=== PATIENT | male | born 1960 | race Hispanic/Latino ===

== ENCOUNTER 2019-01-23 22:23 | Inpatient (IN) | payer MEDICAID ==
[2019-01-24 02:45] LABS: Basophils % (Auto) 0.4 % (0.0-1.8); Eosinophils # (Auto) 0.1 K/mm3 (0.0-0.4); Eosinophils % (Auto) 0.9 % (0.0-4.3); Hemoglobin 15.5 gm/dl (11.8-15.2); Lymphocytes # (Auto) 1.3 K/mm3 (1.2-5.4); Lymphocytes % (Auto) 13.6 % (13.4-35.0); Mean Corpuscular HGB Conc 35 % (32-34); Mean Corpuscular Volume 91 fl (84-94); Monocytes # (Auto) 1.1 K/mm3 (0.0-0.8); Monocytes % (Auto) 11.4 % (0.0-7.3); Platelet Count 211 K/mm3 (140-440); Red Blood Count 4.85 M/mm3 (3.65-5.03); Red Cell Distribution Width 13.6 % (13.2-15.2)
[2019-01-24 03:01] LABS: Alanine Aminotransferase 16 units/L (7-56); BUN/Creatinine Ratio 25; Blood Urea Nitrogen 15 mg/dL (9-20); Calcium 9.4 mg/dL (8.4-10.2); Hemolysis Index 10
[2019-01-24] MEDS ORDERED: ALUM-MAG HYDROXIDE-SIMETHICONE 200-200-20MG/5ML ORAL LIQD 30 ML PO ONE (04:14)
[2019-01-24] MEDS ORDERED: SODIUM CHLORIDE 0.9% 1000 ML 1,000 ML IV ONE (04:14)
[2019-01-24] MEDS ORDERED: LIDOCAINE VISCOUS 2% 15 ML ORAL LIQD PO ONE (04:14)
[2019-01-24] MEDS ORDERED: ONDANSETRON 4 MG/2 ML INJ IV ONE (04:14)
[2019-01-24] MEDS ORDERED: FAMOTIDINE 20 MG/2 ML INJ IV ONE ×2 (04:15→06:31)
[2019-01-24 04:18] LABS: Bilirubin,Urine NEG (Negative); Blood,Urine NEG (Negative); Color,Urine Yellow (Yellow); Protein,Urine <15 mg/dL mg/dL (Negative)
--- NOTE | 2019-01-24 04:59 | XRay Report ---
CHEST 2 VIEWS INDICATION / CLINICAL INFORMATION: cough. COMPARISON: None available. FINDINGS: SUPPORT DEVICES: None. HEART / MEDIASTINUM: No significant abnormality. LUNGS / PLEURA: There is consolidation in the lateral and posterior aspects of right upper lobe consi stent with pneumonia. Lungs are clear. No associated effusion. No adenopathy is seen. No pneumothorax . ADDITIONAL FINDINGS: No significant additional findings. IMPRESSION: 1. Right upper lobe pneumonia Signer Name: Filiberto Oliva MD Signed: 01/24/2019 4:55 AM Workstation Name: [id number]
[2019-01-24] MEDS ORDERED: methylPREDNISolone Sod Succinate 125 MG/2 ML INJ IV ONE (05:21)
[2019-01-24] MEDS ORDERED: IPRATROPIUM/ALBUTEROL SULFATE 3 ML AMPUL.NEB IH ONE (05:21)
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
[2019-01-24] MEDS ORDERED: ACETAMINOPHEN 325 MG TAB PO PRN (06:08)
[2019-01-24] MEDS ORDERED: MAGNESIUM HYDROXIDE (MOM) ORAL LIQD UDC PO PRN (06:08)
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
--- NOTE | 2019-01-24 10:29 | Event Note ---
Date: 01/24/19 This is a follow-up from an admission earlier this morning. Patient seen and examined. We will continue the plan as outlined in H&P. Time spent = 25 minutes with greater than 50% spent on coordination of care and counseling.
[2019-01-24] MEDS: SODIUM CHLORIDE 0.9% 1000 ML 1,000 ML IV SCH ×2 (12:25→21:37)
[2019-01-24] MEDS: ONDANSETRON 4 MG/2 ML INJ IV PRN ×2 (14:55→22:09)
[2019-01-24] MEDS: HEPARIN 5,000 UNIT/1 ML VIAL SUB-Q SCH ×2 (15:25→21:33)
[2019-01-25] MEDS: HEPARIN 5,000 UNIT/1 ML VIAL SUB-Q SCH ×3 (05:04→22:15)
[2019-01-25] MEDS: SODIUM CHLORIDE 0.9% 1000 ML 1,000 ML IV SCH ×2 (05:12→13:06)
[2019-01-25] MEDS: ONDANSETRON 4 MG/2 ML INJ IV PRN ×2 (05:12→17:16)
[2019-01-25 12:32] LABS: Basophils % (Auto) 0.9 % (0.0-1.8); Eosinophils # (Auto) 0.1 K/mm3 (0.0-0.4); Eosinophils % (Auto) 1.3 % (0.0-4.3); Hematocrit 37.9 % (35.5-45.6); Lymphocytes # (Auto) 1.2 K/mm3 (1.2-5.4); Lymphocytes % (Auto) 23.4 % (13.4-35.0); Mean Corpuscular HGB Conc 34 % (32-34); Mean Corpuscular Volume 91 fl (84-94); Monocytes # (Auto) 0.5 K/mm3 (0.0-0.8); Monocytes % (Auto) 10.1 % (0.0-7.3); Platelet Count 182 K/mm3 (140-440); Red Blood Count 4.17 M/mm3 (3.65-5.03); Red Cell Distribution Width 13.6 % (13.2-15.2)
[2019-01-25 12:44] LABS: INR 1.09 (0.87-1.13)
[2019-01-25 12:45] LABS: Partial Thromboplastin Time 29.2 Sec. (24.2-36.6)
[2019-01-25 12:57] LABS: BUN/Creatinine Ratio 28; Blood Urea Nitrogen 11 mg/dL (9-20); Calcium 7.7 mg/dL (8.4-10.2); Hemolysis Index 2
[2019-01-25] MEDS: amLODIPine 10 MG TAB PO SCH (13:01)
--- NOTE | 2019-01-25 15:29 | Progress Note ---
Assessment and Plan (1) Community acquired pneumonia of right upper lobe of lung Current Visit: Yes Status: Acute Plan to address problem: Patient placed on empiric IV antibiotics. He has been placed on IV Levaquin. Will await the culture results. (2) HIV positive Current Visit: Yes Status: Acute Plan to address problem: We'll continue patient's routine medications. CD4 count of 638 Viral load undetectable. (3) DVT prophylaxis Current Visit: Yes Status: Acute Plan to address problem: Patient placed on subcutaneous heparin (4) Full code status Current Visit: Yes Status: Acute Subjective Date of service: 01/25/19 Principal diagnosis: pneumonia Interval history: 58 year old white male with known history of HIV positive with CD4 count of 638 and undetectable viral load presenting to the emergency room today complaining of shortness of breath or cough has been ongoing for about 1 week. He has also had some fever at home. Cough has been productive for some yellowish to brownish sputum. He denies any chest pain. Patient indicates that he has been compliant with his medications and follows up with his physicians. Workup in the emergency room today shows right upper lobe pneumonia. He has been started on empiric IV antibiotics Objective - Constitutional Vitals: Vital Signs - 12hr 01/25/19 01/25/19 01/25/19 05:21 10:00 12:26 Temperature 97.8 F 98.0 F Pulse Rate 49 L 50 L Respiratory 18 20 Rate Blood Pressure 122/55 140/78 O2 Sat by Pulse 98 98 97 Oximetry General appearance: Present: no acute distress, well-nourished - EENT Eyes: PERRL, EOM intact ENT: hearing intact, clear oral mucosa Ears: bilateral: normal - Neck Neck: supple, normal ROM - Respiratory Respiratory effort: normal Respiratory: bilateral: CTA, rhonchi - Breasts Breasts: normal - Cardiovascular Heart rate: 78 Rhythm: regular Heart Sounds: Present: S1 & S2. Absent: gallop, rub Extremities: pulses intact, No edema, normal color, Full ROM - Gastrointestinal General gastrointestinal: Present: soft, non-tender, non-distended, normal bowel sounds - Genitourinary Male genitourinary: normal - Integumentary Integumentary: clear, warm, dry - Musculoskeletal Musculoskeletal: 1, strength equal bilaterally - Neurologic Neurologic: moves all extremities - Psychiatric Psychiatric: memory intact, appropriate mood/affect, intact judgment & insight - Allied health notes Allied health notes reviewed: nursing, case management - Labs CBC & Chem 7: 01/25/19 12:09 01/26/19 05:56 Labs: Abnormal lab results 01/25/19 01/25/19 Range/Units 12:09 12:09 [place] % (Auto) 10.1 H (0.0-7.3) % Chloride 107.3 H (98-107) mmol/L Carbon Dioxide 17 L (22-30) mmol/L Creatinine 0.4 L (0.8-1.5) mg/dL Calcium 7.7 L D (8.4-10.2) mg/dL
[2019-01-26] MEDS: HEPARIN 5,000 UNIT/1 ML VIAL SUB-Q SCH ×3 (06:17→22:12)
[2019-01-26] MEDS: ONDANSETRON 4 MG/2 ML INJ IV PRN ×2 (06:22→13:28)
[2019-01-26 07:42] LABS: Alanine Aminotransferase 14 units/L (7-56); BUN/Creatinine Ratio 24; Blood Urea Nitrogen 12 mg/dL (9-20); Calcium 9.3 mg/dL (8.4-10.2)
[2019-01-26 07:43] LABS: Albumin 3.9 g/dL (3.9-5); Hemolysis Index 5
[2019-01-26 09:27] LABS: Hematocrit 41.7 % (35.5-45.6); Hemoglobin 14.4 gm/dl (11.8-15.2); Mean Corpuscular HGB Conc 35 % (32-34); Mean Corpuscular Volume 91 fl (84-94); Platelet Count 213 K/mm3 (140-440); Red Blood Count 4.59 M/mm3 (3.65-5.03); Red Cell Distribution Width 13.4 % (13.2-15.2)
[2019-01-26 09:28] LABS: Basophils % (Auto) 0.7 % (0.0-1.8); Eosinophils # (Auto) 0.1 K/mm3 (0.0-0.4); Eosinophils % (Auto) 1.4 % (0.0-4.3); Lymphocytes # (Auto) 1.1 K/mm3 (1.2-5.4); Lymphocytes % (Auto) 21.6 % (13.4-35.0); Monocytes # (Auto) 0.4 K/mm3 (0.0-0.8); Monocytes % (Auto) 8.3 % (0.0-7.3)
[2019-01-26] MEDS: amLODIPine 10 MG TAB PO SCH (10:50)
--- NOTE | 2019-01-26 11:04 | Progress Note ---
Assessment and Plan Assessment and plan: Community acquired pneumonia of right upper lobe of lung Patient placed on empiric IV antibiotics. He has been placed on IV Levaquin. Consult ID HIV positive We'll continue patient's routine medications. CD4 count of 638 Viral load undetectable. DVT prophylaxis Patient placed on subcutaneous heparin Hyponatremia Improved History Interval history: Cough Shortness of breath Hospitalist Physical - Physical exam Narrative exam: Gen: Not in acute distress, lying in bed, HEENT: Normocephalic, atraumatic Neck: supple, no JVD Heart: S1 and S2 reg, no murmurs, rubs or gallop Lungs: Rales right upper lung field, no wheeze Abd: soft, NT, non distended, normal BS Ext: No edema, no clubbing, no cyanosis Neuro:Awake,alert, oriented X 3, moves all ext - Constitutional Vitals: Temp Pulse Resp BP Pulse Ox 97.2 F L 67 20 124/84 95 01/26/19 05:25 01/26/19 10:50 01/26/19 05:25 01/26/19 10:50 01/26/19 05:25 General appearance: Present: no acute distress, well-nourished Results - Labs CBC & Chem 7: 01/26/19 05:56 01/26/19 05:56 Labs: Laboratory Last Values WBC 5.2 K/mm3 (4.5-11.0) 01/26/19 05:56 RBC 4.59 M/mm3 (3.65-5.03) 01/26/19 05:56 Hgb 14.4 gm/dl (11.8-15.2) 01/26/19 05:56 Hct 41.7 % (35.5-45.6) 01/26/19 05:56 MCV 91 fl (84-94) 01/26/19 05:56 MCH 31 pg (28-32) 01/26/19 05:56 MCHC 35 % (32-34) H 01/26/19 05:56 RDW 13.4 % (13.2-15.2) 01/26/19 05:56 Plt Count 213 K/mm3 (140-440) 01/26/19 05:56 Lymph % (Auto) 21.6 % (13.4-35.0) 01/26/19 05:56 [place] % (Auto) 8.3 % (0.0-7.3) H 01/26/19 05:56 Eos % (Auto) 1.4 % (0.0-4.3) 01/26/19 05:56 Baso % (Auto) 0.7 % (0.0-1.8) 01/26/19 05:56 Lymph # 1.1 K/mm3 (1.2-5.4) L 01/26/19 05:56 [place] # 0.4 K/mm3 (0.0-0.8) 01/26/19 05:56 Eos # 0.1 K/mm3 (0.0-0.4) 01/26/19 05:56 Baso # 0.0 K/mm3 (0.0-0.1) 01/26/19 05:56 Seg Neutrophils % 68.0 % (40.0-70.0) 01/26/19 05:56 Seg Neutrophils # 3.5 K/mm3 (1.8-7.7) 01/26/19 05:56 PT 14.2 Sec. (12.2-14.9) 01/25/19 12:09 INR 1.09 (0.87-1.13) 01/25/19 12:09 APTT 29.2 Sec. (24.2-36.6) 01/25/19 12:09 Sodium 135 mmol/L (137-145) L 01/26/19 05:56 Potassium 4.3 mmol/L (3.6-5.0) 01/26/19 05:56 Chloride 99.9 mmol/L (98-107) 01/26/19 05:56 Carbon Dioxide 20 mmol/L (22-30) L 01/26/19 05:56 Anion Gap 19 mmol/L 01/26/19 05:56 BUN 12 mg/dL (9-20) 01/26/19 05:56 Creatinine 0.5 mg/dL (0.8-1.5) L 01/26/19 05:56 Estimated GFR > 60 ml/min 01/26/19 05:56 BUN/Creatinine Ratio 24 % 01/26/19 05:56 Glucose 83 mg/dL (75-100) 01/26/19 05:56 Calcium 9.3 mg/dL (8.4-10.2) D 01/26/19 05:56 Total Bilirubin 0.60 mg/dL (0.1-1.2) 01/26/19 05:56 AST 17 units/L (5-40) 01/26/19 05:56 ALT 14 units/L (7-56) 01/26/19 05:56 Alkaline Phosphatase 116 units/L (35-129) 01/26/19 05:56 Total Protein 7.0 g/dL (6.3-8.2) 01/26/19 05:56 Albumin 3.9 g/dL (3.9-5) 01/26/19 05:56 Albumin/Globulin Ratio 1.3 % 01/26/19 05:56 Urine Color Yellow (Yellow) 01/24/19 03:47 Urine Turbidity Clear (Clear) 01/24/19 03:47 Urine pH 7.0 (5.0-7.0) 01/24/19 03:47 Ur Specific [place] 1.009 (1.003-1.030) 01/24/19 03:47 Urine Protein <15 mg/dl mg/dL (Negative) 01/24/19 03:47 Urine Glucose (UA) Neg mg/dL (Negative) 01/24/19 03:47 Urine Ketones Neg mg/dL (Negative) 01/24/19 03:47 Urine Blood Neg (Negative) 01/24/19 03:47 Urine Nitrite Neg (Negative) 01/24/19 03:47 Urine Bilirubin Neg (Negative) 01/24/19 03:47 Urine Urobilinogen 4.0 mg/dL (<2.0) 01/24/19 03:47 Ur Leukocyte Esterase Neg (Negative) 01/24/19 03:47 Urine WBC (Auto) 1.0 /HPF (0.0-6.0) 01/24/19 03:47 Urine RBC (Auto) 3.0 /HPF (0.0-6.0) 01/24/19 03:47 Active Medications - Current Medications Current Medications: Generic Name Dose Route Start Last Admin Trade Name Freq PRN Reason Stop Dose Admin Acetaminophen 650 mg 01/24/19 06:08 Tylenol PO Q4H PRN Pain MILD(1-3)/Fever >100.5/BALDWIN Amlodipine Besylate 10 mg 01/25/19 10:00 01/26/19 10:50 Amlodipine PO 10 mg DAILY MARGARITA Administration Atorvastatin Calcium 10 mg 01/25/19 10:00 01/26/19 10:50 Atorvastatin PO 10 mg QDAY MARGARITA Administration Heparin Sodium (Porcine) 5,000 unit 01/24/19 14:00 01/26/19 06:17 Heparin SUB-Q 5,000 unit Q8HR MARGARITA Administration Levofloxacin/Dextrose 750 mg in 150 mls @ 100 mls/hr 01/24/19 10:00 01/26/19 10:51 Levaquin 750mg/150ml IV 100 mls/hr Q24HR MARGARITA Administration Protocol Sodium Chloride 1,000 mls @ 125 mls/hr 01/24/19 06:15 01/25/19 13:06 Nacl 0.9% 1000 Ml IV 125 mls/hr DIRECT MARGARITA Administration Magnesium Hydroxide 30 ml 01/24/19 06:08 Milk Of Magnesia PO Q4H PRN Constipation Ondansetron HCl 4 mg 01/24/19 06:08 01/26/19 06:22 Zofran IV 4 mg Q8H PRN Administration Nausea And Vomiting Sodium Chloride 10 ml 01/24/19 10:00 01/26/19 10:51 Sodium Chloride Flush Syringe 10 Ml IV 10 ml BID MARGARITA Administration Sodium Chloride 10 ml 01/24/19 06:08 Sodium Chloride Flush Syringe 10 Ml IV PRN PRN LINE FLUSH Nutrition/Malnutrition Assess - Dietary Evaluation Nutrition/Malnutrition Findings: Nutrition Notes Start: 01/25/19 15:00 Freq: Status: Active Protocol: Document 01/25/19 15:00 LM (Rec: 01/25/19 15:13 LM [id number]) Nutrition Notes Need for Assessment generated from: MD Order,MST Current Diagnosis Hypertension Other Pertinent Diagnosis Pneu, HIV Current Diet Cardiac diet Labs/Tests Cr 0.4 Pertinent Medications Reviewed Height 6 ft 1 in Weight 85.2 kg Usual Body Weight 119.54 kg Bude Body Weight (kg) 83.63 BMI 24.7 Weight change and time frame 29% wt loss in 5 months Weight Status Appropriate Subjective/Other Information MD consult for malnutrition and dietary supplement. Pt stated he ate once a week [employer] and his UBW is 263 lb. Pt stated he has been very stressed. Observed pt missing teeth. Pt stated he can eat regular food. Food preferences taken. Offered ONS to pt and pt accepted. Burn Absent Trauma Absent GI Symptoms None Current % PO Negligible Minimum of two criteria Yes Energy Intake (non-severe) <75% Estimated Energy Requirement >7 days Interpretation of Weight Loss (severe) >7.5% in 3 months #1 Nutrition Diagnosis Malnutrition Etiology stress, chronic illness As Evidenced by Signs and Symptoms 29% wt loss in 5 months, pt eating once a week [employer] OPER[employer] Is patient on ventilator? No Is Patient Ambulatory and/or Out of Bed Yes REE-([facility]-ambulatory/OOB) [ [id number] [id number]] Calculation Used for Recommendations [facility] Additional Notes Protein: 102-128g (1.2-1.5g/kg ) Fluid: 1 ml/kcal Nutrition Intervention Change Diet Order: Continue Cardiac Add Supplement/Snack (indicate name/kcal Ensure enlive all flavors TID /protein ) Provides kCal: 1,050 Provides Protein (gm) 60 Goal #1 Meet at least 80% of energy and protein needs Anticipated Discharge Needs: Cardiac diet Follow-Up By: 01/27/19 Additional Comments F/U for PO/ONS
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
[2019-01-26] MEDS: SODIUM CHLORIDE 0.9% 1000 ML 1,000 ML IV SCH (15:21)
[2019-01-26] MEDS ORDERED: [UNRECOGNIZED DRUG - OTHER] PO SCH (17:45)
[2019-01-26] MEDS ORDERED: EFAVIRENZ 600 MG, TENOFOVIR 300 MG, EMTRICITABINE 200 MG PO SCH (18:00)
[2019-01-26] MEDS ORDERED: LAMICTAL 100 MG PO SCH (18:00)
[2019-01-26] MEDS: EFAVIRENZ 200 MG CAP PO SCH (18:20)
[2019-01-26] MEDS: TENOFOVIR 300 MG TAB PO SCH (18:20)
[2019-01-26] MEDS ORDERED: ONDANSETRON 4 MG/2 ML INJ IV PRN (18:28)
[2019-01-26] MEDS: MORPHINE 4 MG/1 ML INJ IV PRN ×2 (18:58→22:12)
[2019-01-26] MEDS: EMTRICITABINE 200 MG CAP PO SCH (19:01)
[2019-01-26] MEDS ORDERED: LYRICA 75 MG PO SCH (22:00)
[2019-01-26] MEDS: PREGABALIN 75 MG CAP PO SCH (22:15)
[2019-01-27] MEDS: SODIUM CHLORIDE 0.9% 1000 ML 1,000 ML IV SCH ×2 (00:30→11:24)
[2019-01-27] MEDS: MORPHINE 4 MG/1 ML INJ IV PRN ×2 (02:16→11:34)
[2019-01-27] MEDS: HEPARIN 5,000 UNIT/1 ML VIAL SUB-Q SCH (06:27)
[2019-01-27] MEDS ORDERED: lamoTRIgine 25 MG TAB PO SCH (10:00)
[2019-01-27] MEDS ORDERED: LAMICTAL 25 MG PO SCH (10:00)
[2019-01-27 11:29] VITALS: BP 134/89
[2019-01-27] MEDS: PREGABALIN 75 MG CAP PO SCH (11:37)
[2019-01-27] MEDS: EFAVIRENZ 200 MG CAP PO SCH (11:39)
[2019-01-27] MEDS: EMTRICITABINE 200 MG CAP PO SCH (11:40)
[2019-01-27] MEDS: TENOFOVIR 300 MG TAB PO SCH (11:40)
[2019-01-27] MEDS: amLODIPine 10 MG TAB PO SCH (11:41)
--- NOTE | 2019-01-27 12:59 | Discharge Summary ---
Providers - Providers Date of Admission: 01/24/19 05:47 Date of discharge: 01/27/19 Attending physician: CEM ALEXANDER 01/24/19 15:11 Consult to Dietitian/Nutrition [CONS] Routine Physician Instructions: Reason For Exam: Reason for Consult: Malnutrition 01/26/19 10:28 Consult to Physician [CONS] Routine Comment: Consulting Provider: ADARSH BROUSSARD Physician Instructions: Reason For Exam: RUL Pneumonia , HIV Primary care physician: LINOLEUM LAYER APPRENTICE Hospitalization Condition: Stable Hospital course: 58 year old white male with known history of HIV positive with CD4 count of 638 and undetectable viral load presented to the emergency room today complaining of shortness of breath, cough and fever for 1 week. Cough has been productive for some yellowish to brownish sputum. He denies any chest pain.Patient indicates that he has been compliant with his medications and follows up with his physicians. Workup in the emergency room revealed right upper lobe pneumonia. He was started on empiric Levaquin and admitted. Community acquired pneumonia of right upper lobe of lung Patient placed on empiric IV antibiotics. He has been placed on IV Levaquin. he was evaluated by ID Physician. HIV positive We'll continue patient's routine medications. CD4 count of 638 Viral load undetectable. Hyponatremia Improved Total time spent on discharge, 33 mins Disposition: DC-01 TO HOME OR SELFCARE - Discharge Diagnoses (1) Community acquired pneumonia of right upper lobe of lung Status: Acute (2) HIV positive Status: Acute (3) Hyponatremia Status: Acute Core Measure Documentation - Palliative Care Palliative Care/ Comfort Measures: Not Applicable - Core Measures Any of the following diagnoses?: none Exam - Constitutional Vitals: Temp Pulse Resp BP Pulse Ox 97.9 F 91 H 24 134/89 97 01/27/19 10:57 01/27/19 11:41 01/27/19 10:57 01/27/19 11:41 01/27/19 10:57 Plan Activity: no restrictions Diet: low fat, low cholesterol, low salt Special Instructions: other (Continue HIV medications) Plan of Treatment: 1.Follow up with PCP in 1 week. Follow up with: PRIMARY CARE, [Primary Care Provider] - 3-5 Days Forms: AMA Form Prescriptions: levoFLOXacin [Levaquin] 750 mg PO QDAY #3 tablet
--- NOTE | 2019-01-27 14:04 | Progress Note ---
Assessment and Plan Cultures Blood culture 01/24/19 no growth to date Assessment: 58 yo M PMHx well controlled HIV admitted with pneumonia 1. Pneumonia - continue levofloxacin 750mg q24h. Ok to discharge on same dosage PO to complete 5 days total therapy. 2. HIV -On home Atripla. Reports being well controlled last he knows, is compliant. Requesting repeat CD4 and viral load in the AM; advised they will likely return after his discharge. Still wants them drawn. Recs: - Continue levofloxacin. Ok to discharge on PO 750mg q24 to complete 5 total days of therapy. - ok for discharge from infectious disease perspective. - continued home Atripla. Thank you for the consult, we will continue to follow. [facility] ([facility]) M: [phone] O: [phone] F: [phone] Subjective Date of service: 01/27/19 Principal diagnosis: pneumonia Interval history: Feels slightly improved. Afebrile, normal white count. Objective - Exam Narrative Exam: General Normal appearance, well developed, no acute distress Eyes - PERRLA, EOM intact ENT - Moist mucous membranes, no lymphadenopathy Neck - No noticeable or palpable swelling, redness or rash around throat or on face Lymph Nodes - No lymphadenopathy Cardiovascular - RRR no m/r/g, no JVD, no carotid bruits Lungs - Clear to auscultation, no use of accessory muscles, no crackles or wheezes. Skin - No rashes, skin warm and dry, no erythematous areas Abdomen - Normal bowel sounds, abdomen soft and nontender Extremities - No edema, cyanosis or clubbing Musculoskeletal - 5/5 strength, normal range of motion, no swollen or erythematous joints. Neurological Alert and oriented x 3, CN 2-12 grossly intact. - Constitutional Vitals: Vital Signs Temp Pulse Resp BP Pulse Ox 97.9 F 91 H 24 134/89 97 01/27/19 10:57 01/27/19 11:41 01/27/19 10:57 01/27/19 11:41 01/27/19 10:57 Temperature -Last 24 Hours Temperature 97.9 F Temperature 97.8 F Temperature 98.1 F Temperature 99.1 F - Labs CBC & Chem 7: 01/26/19 05:56 01/26/19 05:56
[2019-01-27] MEDS ORDERED: lamoTRIgine 100 MG TAB PO SCH (18:00)
[2019-02-04 12:56] LABS: CD19, Absolute SEE SCANNED RESULT; Lymphocytes, Absolute SEE SCANNED RESULT
[2019-02-04 12:57] LABS: CD3, Absolute SEE SCANNED RESULT; CD3, Percentage SEE SCANNED RESULT; CD4, Absolute SEE SCANNED RESULT; CD4, Percentage SEE SCANNED RESULT; CD4/CD8 Ratio SEE SCANNED RESULT; CD8, Absolute SEE SCANNED RESULT; CD8, Percentage SEE SCANNED RESULT
== END 2019-01-27 14:54 | disposition home or self-care (01) | DRG 975 ==
LOC: ED 22:23 → 3A 01-24 05:47
PROVIDERS: ADMIT Internal Medicine Geriatric Medicine; ATTEND Internal Medicine
PROC: 5A09357 Assistance with Respiratory Ventilation, Less than 24 Consecutive Hours, Continuous Positive Airway Pressure (ICD-10-PCS; principal; 2019-01-25)
PROC: 5A09357 Assistance with Respiratory Ventilation, Less than 24 Consecutive Hours, Continuous Positive Airway Pressure (ICD-10-PCS; 2019-01-26)
DX: J18.9 Pneumonia, unspecified organism (principal); E87.1 Hypo-osmolality and hyponatremia; B20 Human immunodeficiency virus [HIV] disease; F31.9 Bipolar disorder, unspecified; Z96.641 Presence of right artificial hip joint; F17.200 Nicotine dependence, unspecified, uncomplicated; Z88.6 Allergy status to analgesic agent; Z88.0 Allergy status to penicillin; Z88.8 Allergy status to other drugs, medicaments and biological substances; Z82.49 Family history of ischemic heart disease and other diseases of the circulatory system
CPT/HCPCS: 36415; 71046; 80048; 80053; 81001; 82024; 85025; 85610; 85730; 87040; 87536; 94660; 96374; G0378; A9270-GY; J1644; J1956; J2270; J2405; J2930; J7030